=== PATIENT | male | born 1965 | race Caucasian/White ===

== ENCOUNTER → 2024-01-30 15:30 | Outpatient (REF) | payer BC, SELFPAY | LOC: HWRAD 15:30 | PROVIDERS: ATTENDING PHYSICIAN Nurse Practitioner Adult Health | DX: M79.671 Pain in right foot (principal); M79.672 Pain in left foot | CPT/HCPCS: 73630 ==

== ENCOUNTER → 2024-08-05 07:38 | Outpatient (REF) | payer BC, SELFPAY | LOC: HWRAD 07:38 | PROVIDERS: ATTENDING PHYSICIAN Physician Assistant; FAMILY PHYSICIAN Nurse Practitioner Adult Health | DX: R79.89 Other specified abnormal findings of blood chemistry (principal) | CPT/HCPCS: 76700 ==